=== PATIENT | male | born 1970 | race American Indian/Alaskan Native ===

== ENCOUNTER 2016-08-23 18:42 | Emergency (ER) | payer MEDICAID, OTHER ==
[2016-08-23 19:10] VITALS: BP 117/68
[2016-08-23] MEDS ORDERED: Lidocaine 1% 30 ML SDV INJECT ONE (19:22)
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
== END 2016-08-23 20:27 | disposition home or self-care (01) ==
LOC: DL.ED 18:42
DX: S01.81XA Laceration without foreign body of other part of head, initial encounter (principal); I10 Essential (primary) hypertension; E78.00 Pure hypercholesterolemia, unspecified; Z79.82 Long term (current) use of aspirin; Z79.899 Other long term (current) drug therapy; Y04.0XXA Assault by unarmed brawl or fight, initial encounter
CPT/HCPCS: 12013; 70450; 99284

== ENCOUNTER 2018-10-14 20:23 | Emergency (ER) | payer MEDICAID, OTHER ==
[2018-10-14] MEDS ORDERED: Colchicine 0.6 MG Tab PO ONE ×2 (20:24→21:44)
[2018-10-14 20:31] VITALS: BP 144/60
--- NOTE | 2018-10-14 20:56 | EDM.PDOC ---
ED HPI GENERAL MEDICAL PROBLEM - General Chief Complaint: Lower Extremity Injury/Pain Stated Complaint: LEFT FOOT PAIN Time Seen by Provider: 10/14/18 20:45 Source of Information: Reports: Patient History Limitations: Reports: No Limitations - History of Present Illness INITIAL COMMENTS - FREE TEXT/NARRATIVE: This 48 yo male patient reports to the ED with left foot pain. The patient reports his symptoms have been getting worse over the past 3 days. The patient reports he has been seen by the stock parts inspector in the [facility] for gout 2 times in the past month. The patient took his last pills on Wednesday. The patient does not know what the medications were, but he had green pills and white pills. The patient also reports he normally drinks blackberry concha on a daily basis. The patient reports that he may have rolled his ankle as well. Duration: Day(s):, Constant Location: Reports: Lower Extremity, Left Quality: Reports: Ache, Dull Severity: Moderate Improves with: Reports: None Worsens with: Reports: None Context: Reports: Other Associated Symptoms: Reports: No Other Symptoms Left Foot Pain Score (Numeric/FACES): 10 - Related Data Allergies Allergy/AdvReac Type Severity Reaction Status Date / Time No Known Allergies Allergy Verified 10/14/18 20:37 Home Meds: Home Meds Aspirin [Halfprin] 81 mg PO DAILY 08/08/13 [History] Atenolol [Tenormin] 25 mg PO DAILY 08/08/13 [History] Cholecalciferol (Vitamin D3) [Vitamin D3] 1 cap PO DAILY 08/08/13 [History] Ibuprofen [Motrin] 200 mg PO Q8HR PRN 08/08/13 [History] Lisinopril 60 mg PO DAILY 08/08/13 [History] Multivitamin [Multi-Vitamin Daily] 1 each PO DAILY 08/08/13 [History] Ranitidine [Zantac] 150 mg PO DAILY 08/08/13 [History] Venlafaxine [Effexor XR 24 Hr] 37.5 mg PO DAILY 08/08/13 [History] atorvaSTATin Calcium [Atorvastatin Calcium] 20 mg PO DAILY 08/08/13 [History] [place]-3 Fatty Acids/Fish Oil [Fish Oil 1,000 mg Softgel] 1 each PO DAILY [History] Past Medical History - Past Health History Medical/Surgical History: Denies Medical/Surgical History HEENT History: Reports: None Cardiovascular History: Reports: High Cholesterol, Hypertension Respiratory History: Reports: None Gastrointestinal History: Reports: None Genitourinary History: Reports: None Musculoskeletal History: Reports: Gout Neurological History: Reports: None Psychiatric History: Reports: None Endocrine/Metabolic History: Reports: Other (See Below) Other Endocrine/Metabolic History: pre diabetic Hematologic History: Reports: None Immunologic History: Reports: None Oncologic (Cancer) History: Reports: None Dermatologic History: Reports: None Social & Family History - Caffeine Use Caffeine Use: Reports: Coffee, Soda - Alcohol Use Days Per Week of Alcohol Use: 3 Number of Drinks Per Day: 12 Total Drinks Per Week: 36 - Recreational Drug Use Recreational Drug Use: No - Living Situation & Occupation Living situation: Reports: , with Spouse, with Family Occupation: Employed Review of Systems - Review of Systems Review Of Systems: ROS reveals no pertinent complaints other than HPI. ED EXAM, GENERAL - Physical Exam Exam: See Below Exam Limited By: No Limitations General Appearance: Alert, WD/WN, Mild Distress Eye Exam: Bilateral Eye: EOMI, Normal Inspection, PERRL Ears: Normal External Exam, Normal Canal, Hearing Grossly Normal, Normal TMs Nose: Normal Inspection, Normal Mucosa, No Blood Throat/Mouth: Normal Inspection, Normal Lips, Normal Teeth, Normal Gums, Normal Oropharynx, Normal Voice, No Airway Compromise Head: Atraumatic, Normocephalic Neck: Normal Inspection, Supple, Non-Tender, Full Range of Motion Respiratory/Chest: No Respiratory Distress, Lungs Clear, Normal Breath Sounds, No Accessory Muscle Use, Chest Non-Tender Cardiovascular: Normal Peripheral Pulses, Regular Rate, Rhythm, No Edema, No Gallop, No JVD, No Murmur, No Rub GI/Abdominal: Normal Bowel Sounds, Soft, Non-Tender, No Organomegaly, No Distention, No Abnormal Bruit, No Mass (Male) Exam: Deferred Rectal (Males) Exam: Deferred Back Exam: Normal Inspection, Full Range of Motion, NT Extremities: Leg Pain (left foot and ankle pain) Neurological: Alert, Oriented, CN II-XII Intact, Normal Cognition, Normal Gait, Normal Reflexes, No Motor/Sensory Deficits Psychiatric: Normal Affect, Normal Mood Skin Exam: Warm, Dry, Intact, Normal Color, No Rash Lymphatic: No Adenopathy Course - Vital Signs Last Recorded V/S: Last Vital Signs Temp 35.4 C 10/14/18 20:26 Pulse 81 10/14/18 20:26 Resp 20 10/14/18 20:26 BP 144/60 H 10/14/18 20:26 Pulse Ox 98 10/14/18 20:26 - Orders/Labs/Meds Labs: Laboratory Tests 10/14/18 10/14/18 Range/Units 20:45 20:45 WBC 11.5 H (5.0-10.0) 10^3/uL RBC 4.36 L (4.6-6.2) 10^6/uL Hgb 12.9 L (14.0-18.0) g/dL Hct 39.3 L (40.0-54.0) % MCV 90.1 D (80-100) fL MCH 29.6 (27.0-34.0) pg MCHC 32.8 L (33.0-35.0) g/dL Plt Count 227 (150-450) 10^3/uL Neut % (Auto) 69.5 (42.2-75.2) % Lymph % (Auto) 18.3 L (20.5-50.1) % [place] % (Auto) 9.7 H (2-8) % Eos % (Auto) 2.2 (1.0-3.0) % Baso % (Auto) 0.3 (0.0-1.0) % Sodium 138 (135-145) mmol/L Potassium 3.8 (3.6-5.0) mmol/L Chloride 103 (101-111) mmol/L Carbon Dioxide 23.0 (21.0-31.0) mmol/L Anion Gap 15.8 BUN 26 H (7-18) mg/dL Creatinine 1.5 H (0.6-1.3) mg/dL Est Cr Clr Drug Dosing 65.54 mL/min Estimated GFR (MDRD) 50 BUN/Creatinine Ratio 17.33 Glucose 98 (74-105) mg/dL Uric Acid 7.9 H (2.6-7.2) mg/dL Calcium 8.7 (8.4-10.2) mg/dl Total Bilirubin 0.8 (0.2-1.0) mg/dL AST 35 (10-42) IU/L ALT 33 (10-60) IU/L Alkaline Phosphatase 127 H (42-121) IU/L Total Protein 8.2 (6.7-8.2) g/dl Albumin 4.0 (3.2-5.5) g/dl Globulin 4.2 Albumin/Globulin Ratio 0.95 Ethyl Alcohol < 5 mg/dL Meds: Medications Discontinued Medications Generic Name Dose Route Start Last Admin Trade Name Shakira PRN Reason Stop Dose Admin Colchicine 1.2 mg 10/14/18 21:44 Colcrys PO 10/14/18 21:45 ONETIME ONE Departure - Departure Time of Disposition: 21:46 Disposition: Home, Self-Care 01 Condition: Fair Clinical Impression: Acute gout Qualifiers: Gout site: ankle Gout etiology: unspecified cause Laterality: left Qualified Code(s): M10.9 - Gout, unspecified - Discharge Information *PRESCRIPTION DRUG MONITORING PROGRAM REVIEWED*: Not Applicable *COPY OF PRESCRIPTION DRUG MONITORING REPORT IN PATIENT DENISE: Not Applicable Instructions: Low-Purine Eating Plan, Gout, [id number] Forms: ED Department Discharge Care Plan Goals: The patient was advised of the examination, x-ray and lab results during the visit. The patient was given an oral dose of Colchicine while in the ED and sent home with a dose to take at 11 pm tonight. The patient was encouraged to increase his oral fluid intake. The patient was discharged with instructions for a low purine diet. If the patient has any additional symptoms or concerns, the patient should either return to the emergency department or visit his primary care facility.
[2018-10-14 21:21] LABS: ANION GAP 15.8; CHLORIDE,CL 103 mmol/L (101-111); SODIUM,NA 138 mmol/L (135-145)
[2018-10-14] MEDS ORDERED: Colchicine 0.6 MG Tab ONE (21:48)
== END 2018-10-14 21:51 | disposition home or self-care (01) ==
LOC: DL.ED 20:23
DX: M10.9 Gout, unspecified (principal); E78.00 Pure hypercholesterolemia, unspecified; I10 Essential (primary) hypertension; Z79.899 Other long term (current) drug therapy; Z79.82 Long term (current) use of aspirin
CPT/HCPCS: 36415; 73610; 80053; 84550; 85025; 99283; A9270; G0480

== ENCOUNTER 2019-02-22 21:12 | Emergency (ER) | payer MEDICAID ==
[2019-02-22 22:14] VITALS: BP 128/41; PULSE 73
--- NOTE | 2019-02-22 22:42 | EDM.PDOC ---
<Marlyn Coronado - Last Filed: 02/22/19 22:37> ED HPI GENERAL MEDICAL PROBLEM - General Chief Complaint: Lower Extremity Injury/Pain Stated Complaint: SWELLING IN L FOOT Time Seen by Provider: 02/22/19 22:00 Source of Information: Reports: Patient, Family - History of Present Illness INITIAL COMMENTS - FREE TEXT/NARRATIVE: Patient is a 48 year old male with PMH of gout and peripheral neuropathy who presents to the ED with his son for left ankle pain. 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 His son states that as the day went on he appeared to be limping, so he came in to the ED. Pain is worst upon standing from a seated position and also on walking. Denies fever or any other complaints. He had a similar episode in October when he was diagnosed with gout and given dietary guidelines along with Colchicine in the ED. His Uric Acid at that tie was 7.9. Prior to October he was taking Allopurinol and Indomethacin, but ran out of those which triggered the visit to the ED in October. He upheld the dietary guidelines for 3 weeks only. He denies ETOH consumption on a daily basis. He is not taking any medications for gout at this time. Onset: Today Location: Reports: Lower Extremity, Left Improves with: Reports: Immobilization, Rest Worsens with: Reports: Movement Left Foot Pain Score (Numeric/FACES): 6 - Related Data Allergies Allergy/AdvReac Type Severity Reaction Status Date / Time No Known Allergies Allergy Verified 02/22/19 22:02 Home Meds: Home Meds Aspirin [Halfprin] 81 mg PO DAILY 08/08/13 [History] Atenolol [Tenormin] 25 mg PO DAILY 08/08/13 [History] Cholecalciferol (Vitamin D3) [Vitamin D3] 1 cap PO DAILY 08/08/13 [History] Ibuprofen [Motrin] 200 mg PO Q8HR PRN 08/08/13 [History] Lisinopril 60 mg PO DAILY 08/08/13 [History] Multivitamin [Multi-Vitamin Daily] 1 each PO DAILY 08/08/13 [History] Ranitidine [Zantac] 150 mg PO DAILY 08/08/13 [History] Venlafaxine [Effexor XR 24 Hr] 37.5 mg PO DAILY 08/08/13 [History] atorvaSTATin Calcium [Atorvastatin Calcium] 20 mg PO DAILY 08/08/13 [History] [place]-3 Fatty Acids/Fish Oil [Fish Oil 1,000 mg Softgel] 1 each PO DAILY [History] Past Medical History - Past Health History Medical/Surgical History: Denies Medical/Surgical History HEENT History: Reports: None Cardiovascular History: Reports: High Cholesterol, Hypertension Respiratory History: Reports: None Gastrointestinal History: Reports: None Genitourinary History: Reports: None Musculoskeletal History: Reports: Gout Neurological History: Reports: None Psychiatric History: Reports: None Endocrine/Metabolic History: Reports: Other (See Below) Other Endocrine/Metabolic History: pre diabetic Hematologic History: Reports: None Immunologic History: Reports: None Oncologic (Cancer) History: Reports: None Dermatologic History: Reports: None Social & Family History - Family History Family Medical History: Noncontributory - Tobacco Use Smoking Status *Q: Never Smoker Second Hand Smoke Exposure: No - Caffeine Use Caffeine Use: Reports: Soda - Alcohol Use Date of Last Drink: 02/21/19 - Recreational Drug Use Recreational Drug Use: No - Living Situation & Occupation Living situation: Reports: , with Spouse, with Family Occupation: Employed ED EXAM, GENERAL - Physical Exam Exam Limited By: No Limitations General Appearance: Alert, No Apparent Distress Respiratory/Chest: No Respiratory Distress, Lungs Clear, Normal Breath Sounds, No Accessory Muscle Use, Chest Non-Tender Cardiovascular: Regular Rate, Rhythm Extremities: Other (Left ankle is swollen and ROM is decreased due to pain on internal and external rotations, left foot is warm to touch in comparison to the right, severe tenderness over the 1st metatarsal joint with firm palpation, trace pitting edema of left foot and ankle, weak but palpable pulses ) Neurological: Alert, Normal Cognition Course - Vital Signs Last Recorded V/S: Last Vital Signs Temp 98.2 F 02/22/19 22:00 Pulse 73 02/22/19 22:00 Resp 19 02/22/19 22:00 BP 128/41 L 02/22/19 22:00 Pulse Ox 99 02/22/19 22:00 - Orders/Labs/Meds Labs: Laboratory Tests 02/22/19 02/22/19 02/22/19 Range/Units 22:43 22:43 22:43 WBC 13.4 H (5.0-10.0) 10^3/uL RBC 4.58 L (4.6-6.2) 10^6/uL Hgb 13.6 L (14.0-18.0) g/dL Hct 41.2 (40.0-54.0) % MCV 90.0 (80-100) fL MCH 29.7 (27.0-34.0) pg MCHC 33.0 (33.0-35.0) g/dL Plt Count 243 (150-450) 10^3/uL Neut % (Auto) 69.4 (42.2-75.2) % Lymph % (Auto) 17.1 L (20.5-50.1) % [place] % (Auto) 10.0 H (2-8) % Eos % (Auto) 3.1 H (1.0-3.0) % Baso % (Auto) 0.4 (0.0-1.0) % Sodium 137 (135-145) mmol/L Potassium 3.8 (3.6-5.0) mmol/L Chloride 100 L (101-111) mmol/L Carbon Dioxide 26.0 (21.0-31.0) mmol/L Anion Gap 14.8 BUN 27 H (7-18) mg/dL Creatinine 1.1 (0.6-1.3) mg/dL Est Cr Clr Drug Dosing 89.37 mL/min Estimated GFR (MDRD) > 60 Glucose 106 H (74-105) mg/dL Uric Acid 11.4 H (2.6-7.2) mg/dL Calcium 9.2 (8.4-10.2) mg/dl C-Reactive Protein 6.1 H (0.0-1.3) mg/dL Meds: Medications Discontinued Medications Generic Name Dose Route Start Last Admin Trade Name Freq PRN Reason Stop Dose Admin Colchicine 1.2 mg 02/22/19 23:16 02/22/19 23:36 Colcrys PO 02/22/19 23:17 1.2 mg ONETIME ONE Administration Departure - Departure Disposition: Home, Self-Care 01 Clinical Impression: Gout attack Qualifiers: Gout site: ankle Gout etiology: unspecified cause Laterality: left Qualified Code(s): M10.9 - Gout, unspecified - Discharge Information Instructions: Low-Purine Eating Plan, Gout, [id number] Forms: ED Department Discharge Additional Instructions: Indomethacin 25mg 2 3 times daily for 24 hours then one three timed daily increase fluids light activity advance as tolerated take medications with food limit processed foods follow up in clinic, - Assessment/Plan Admission H&P: Please use this note as an admission H&P Assessment:: A&P: Left foot pain likely secondary to gout - Follow up on CBC, BMP, uric acid, CRP - No indication for x-ray as there was no injury - Consider colchicine in ED, and discharge with Allopurinol and Indoethacin - Re-emphasize the importance of a low purine diet, avoiding ETOH, and weight reduction <Shawna Guerra - Last Filed: 02/23/19 07:18> ED HPI GENERAL MEDICAL PROBLEM - General History Limitations: Reports: No Limitations Review of Systems - Review of Systems Review Of Systems: ROS reveals no pertinent complaints other than HPI. ED EXAM, GENERAL - Physical Exam Exam: See Below Ears: Hearing Grossly Normal Throat/Mouth: Normal Voice Head: Atraumatic, Normocephalic Neck: Full Range of Motion Skin Exam: Warm, Dry, Intact. No: Normal Color (1st metatarsal head, warm, ) Departure - Departure Time of Disposition: 23:23 Condition: Good - Discharge Information *PRESCRIPTION DRUG MONITORING PROGRAM REVIEWED*: Not Applicable *COPY OF PRESCRIPTION DRUG MONITORING REPORT IN PATIENT DENISE: Not Applicable
[2019-02-22 23:09] LABS: ANION GAP 14.8; CHLORIDE,CL 100 mmol/L (101-111); SODIUM,NA 137 mmol/L (135-145)
[2019-02-22] MEDS: Colchicine 0.6 MG Tab PO ONE (23:36)
== END 2019-02-22 23:37 | disposition home or self-care (01) ==
LOC: DL.ED 21:12
DX: M10.9 Gout, unspecified (principal); I10 Essential (primary) hypertension; Z79.82 Long term (current) use of aspirin; Z79.899 Other long term (current) drug therapy
CPT/HCPCS: 36415; 80048; 84550; 85025; 86140; 99283; A9270-GY

== ENCOUNTER 2019-09-03 19:06 | Emergency (ER) | payer MEDICAID ==
[2019-09-03 19:12] VITALS: BP 126/68; PULSE 63
[2019-09-03] MEDS ORDERED: GI Cocktail Oral Solution 30 ML PO ONE (19:27)
--- NOTE | 2019-09-03 19:33 | EDM.PDOC ---
ED HPI GENERAL MEDICAL PROBLEM - General Chief Complaint: Abdominal Pain Stated Complaint: AMBULANCE Time Seen by Provider: 09/03/19 19:30 Source of Information: Reports: Patient History Limitations: Reports: No Limitations - History of Present Illness INITIAL COMMENTS - FREE TEXT/NARRATIVE: 3 days h/o sharp epiG pain with on-off intensity, nauseous with decrease appetite, ate lunch of pizza without vomiting. pain not going away. still has GB. Middle Epigastric Pain Score (Numeric/FACES): 6 - Related Data Allergies Allergy/AdvReac Type Severity Reaction Status Date / Time No Known Allergies Allergy Verified 09/03/19 19:13 Home Meds: Home Meds Aspirin [Halfprin] 81 mg PO DAILY 08/08/13 [History] Atenolol [Tenormin] 100 mg PO DAILY 08/08/13 [History] Ibuprofen [Motrin] 200 mg PO Q8HR PRN 08/08/13 [History] Lisinopril 40 mg PO DAILY 08/08/13 [History] Multivitamin [Multi-Vitamin Daily] 1 each PO DAILY 08/08/13 [History] Venlafaxine [Effexor XR 24 Hr] 150 mg PO DAILY 08/08/13 [History] atorvaSTATin Calcium [Atorvastatin Calcium] 20 mg PO DAILY 08/08/13 [History] [place]-3 Fatty Acids/Fish Oil [Fish Oil 1,000 mg Softgel] 1 each PO DAILY [History] Omeprazole 20 mg PO DAILY 09/03/19 [History] hydroCHLOROthiazide [Hydrochlorothiazide] 25 mg PO DAILY 09/03/19 [History] Past Medical History - Past Health History Medical/Surgical History: Denies Medical/Surgical History HEENT History: Reports: None Cardiovascular History: Reports: High Cholesterol, Hypertension Respiratory History: Reports: None Gastrointestinal History: Reports: None Genitourinary History: Reports: None Musculoskeletal History: Reports: Gout Neurological History: Reports: None Psychiatric History: Reports: None Endocrine/Metabolic History: Reports: Other (See Below) Other Endocrine/Metabolic History: pre diabetic Hematologic History: Reports: None Immunologic History: Reports: None Oncologic (Cancer) History: Reports: None Dermatologic History: Reports: None Social & Family History - Family History Family Medical History: Noncontributory - Tobacco Use Smoking Status *Q: Never Smoker Second Hand Smoke Exposure: No - Caffeine Use Caffeine Use: Reports: Soda - Alcohol Use Date of Last Drink: 09/01/19 - Recreational Drug Use Recreational Drug Use: No - Living Situation & Occupation Living situation: Reports: , with Spouse, with Family Occupation: Employed ED ROS GENERAL - Review of Systems Review Of Systems: Comprehensive ROS is negative, except as noted in HPI. ED EXAM, GI/ABD - Physical Exam Exam: See Below Exam Limited By: No Limitations General Appearance: Alert, WD/WN, Mild Distress, Other (discomfort). No: Active Emesis Ears: Hearing Grossly Normal Throat/Mouth: Normal Voice, No Airway Compromise Head: Atraumatic Neck: Non-Tender, Full Range of Motion Respiratory/Chest: No Respiratory Distress Cardiovascular: Regular Rate, Rhythm GI/Abdominal Exam: Tender, Other (epiG region, splinting). No: Distended, Guarding, Rigid, Rebound Neurological: Alert, Oriented, Normal Cognition, Normal Gait, No Motor/Sensory Deficits Psychiatric: Flat Affect Skin Exam: Warm, Dry, Normal Color Lymphatic: No Adenopathy Course - Vital Signs Last Recorded V/S: Last Vital Signs Temp 36.8 C 09/03/19 19:11 Pulse 63 09/03/19 19:11 Resp 16 09/03/19 19:11 BP 126/68 09/03/19 19:11 Pulse Ox 95 09/03/19 19:11 - Orders/Labs/Meds Orders: Active Orders 24 hr Category Date Time Status Abdomen Pelvis w Cont [CT] Urgent Exams 09/03/19 19:50 Taken Labs: Laboratory Tests 09/03/19 09/03/19 Range/Units 19:24 19:24 WBC 12.4 H (5.0-10.0) 10^3/uL RBC 4.76 (4.6-6.2) 10^6/uL Hgb 13.9 L (14.0-18.0) g/dL Hct 41.5 (40.0-54.0) % MCV 87.2 (80-100) fL MCH 29.2 (27.0-34.0) pg MCHC 33.5 (33.0-35.0) g/dL Plt Count 288 (150-450) 10^3/uL Neut % (Auto) 70.4 (42.2-75.2) % Lymph % (Auto) 16.8 L (20.5-50.1) % [place] % (Auto) 8.4 H (2-8) % Eos % (Auto) 3.9 H (1.0-3.0) % Baso % (Auto) 0.5 (0.0-1.0) % Sodium 137 (136-145) mmol/L Potassium 4.1 (3.5-5.1) mmol/L Chloride 98 (98-107) mmol/L Carbon Dioxide 25 (21-32) mmol/L Anion Gap 18.1 H (7-13) mEq/L BUN 20 H (7-18) mg/dL Creatinine 1.18 (0.70-1.30) mg/dL Est Cr Clr Drug Dosing 79.91 mL/min Estimated GFR (MDRD) > 60 BUN/Creatinine Ratio 16.9 (No establ ref range) Glucose 121 H (74-99) mg/dL Calcium 8.5 (8.5-10.1) mg/dL Total Bilirubin 0.4 (0.2-1.0) mg/dL AST 32 (15-37) U/L ALT 57 (16-63) U/L Alkaline Phosphatase 158 H (46-116) U/L Troponin I < 0.017 (0.000-0.056) ng/mL Total Protein 8.9 H (6.4-8.2) g/dL Albumin 3.8 (3.4-5.0) g/dL Globulin 5.1 Albumin/Globulin Ratio 0.7 Amylase 61 (25-115) U/L Lipase 127 (73-393) U/L Meds: Medications Discontinued Medications Generic Name Dose Route Start Last Admin Trade Name Luisq PRN Reason Stop Dose Admin Al Hydroxide/Mg Hydroxide 30 ml 09/03/19 19:27 09/03/19 19:36 Gi Cocktail PO 09/03/19 19:28 30 ml ONETIME ONE Administration Iopamidol 100 ml 09/03/19 19:49 09/03/19 20:16 Isovue-300 (61%) IVPUSH 09/03/19 19:50 100 ml ONETIME ONE Administration - Re-Assessments/Exams Free Text/Narrative Re-Assessment/Exam: 09/03/19 21:28 results discussed with pt & spouse. Departure - Departure Time of Disposition: 21:28 Disposition: Home, Self-Care 01 Condition: Good Clinical Impression: Abdominal pain Qualifiers: Abdominal location: right upper quadrant Qualified Code(s): R10.11 - Right upper quadrant pain - Discharge Information Forms: ED Department Discharge Additional Instructions: 1) see clinic tomorrow for MRI SCAN OF ABDOMEN FOR LIVER MASS on CAT SCAN. Sepsis Event Note - Evaluation Sepsis Screening Result: No Definite Risk - Focused Exam Vital Signs: Vital Signs Temp Pulse Resp BP Pulse Ox 09/03/19 19:11 36.8 C 63 16 126/68 95 Date Exam was Performed: 09/03/19 Time Exam was Performed: 21:27 - My Orders Last 24 Hours: My Active Orders 09/03/19 19:50 Abdomen Pelvis w Cont [CT] Urgent - Assessment/Plan Last 24 Hours: My Active Orders 09/03/19 19:50 Abdomen Pelvis w Cont [CT] Urgent
[2019-09-03] MEDS ORDERED: Iopamidol 612 MG/ML 100 ML Bottle IVPUSH ONE (19:49)
[2019-09-03 20:00] LABS: ANION GAP 18.1 mEq/L (7-13); CHLORIDE,CL 98 mmol/L (98-107); SODIUM,NA 137 mmol/L (136-145)
[2019-09-03] MEDS ORDERED: Acetaminophen/HYDROcodone 325-10 MG Tab PO ONE (21:27)
== END 2019-09-03 21:38 | disposition home or self-care (01) ==
LOC: DL.ED 19:06
DX: R10.11 Right upper quadrant pain (principal); R10.13 Epigastric pain; I10 Essential (primary) hypertension; E78.00 Pure hypercholesterolemia, unspecified; M10.9 Gout, unspecified; Z79.82 Long term (current) use of aspirin; Z79.899 Other long term (current) drug therapy
CPT/HCPCS: 36415; 74177; 80053; 82150; 83690; 84484; 85025; 99284; A9270; Q9967

== ENCOUNTER 2021-07-14 23:07 | Emergency (ER) | payer MEDICAID, OTHER ==
[2021-07-14 23:26] VITALS: BP 156/78; PULSE 67
[2021-07-15 00:12] LABS: ANION GAP 20.2 mEq/L (7-13); CHLORIDE,CL 103 mmol/L (98-107); SODIUM,NA 140 mmol/L (136-145)
[2021-07-15] MEDS ORDERED: Magnesium Sulfate/Water 2 GM in Premix Bag 1 BAG IV ONE (00:14)
[2021-07-15 00:17] LABS: CORONAVIRUS COVID-19 NAA NEGATIVE (NEGATIVE)
[2021-07-15 01:18] LABS: AMPHETAMINES,URINE NEGATIVE (NEGATIVE); BARBITURATES,URINE NEGATIVE (NEGATIVE); BENZODIAZEPINE,URINE NEGATIVE (NEGATIVE); MDMA (ECSTASY), URINE NEGATIVE (NEGATIVE); METHADONE,URINE NEGATIVE (NEGATIVE); METHAMPHETAMINES,URINE NEGATIVE (NEGATIVE); OPIATES,URINE NEGATIVE (NEGATIVE); OXYCODONE,URINE NEGATIVE (NEGATIVE); PHENCYCLIDINE,URINE NEGATIVE (NEGATIVE); TCA,URINE NEGATIVE (NEGATIVE)
== END 2021-07-15 01:21 | disposition home or self-care (01) ==
LOC: DL.ED 23:07
DX: K44.9 Diaphragmatic hernia without obstruction or gangrene (principal); R74.8 Abnormal levels of other serum enzymes; E83.42 Hypomagnesemia; E78.00 Pure hypercholesterolemia, unspecified; I10 Essential (primary) hypertension; M10.9 Gout, unspecified; Z79.82 Long term (current) use of aspirin; Z79.899 Other long term (current) drug therapy; Z20.822 Contact with and (suspected) exposure to COVID-19
CPT/HCPCS: 0240U; 36415; 71045; 80053; 80305; 80307; 81001; 83605; 83735; 84484; 85025; 86140; 93005; 96365; 99285; J3475

== ENCOUNTER 2021-09-10 12:04 | Emergency (ER) | payer MEDICAID ==
[2021-09-10 12:18] VITALS: BP 187/84; PULSE 83
[2021-09-10 13:28] LABS: ANION GAP 14.5 mEq/L (7-13); CHLORIDE,CL 103 mmol/L (98-107); SODIUM,NA 142 mmol/L (136-145)
[2021-09-10 13:36] LABS: CORONAVIRUS COVID-19 NAA NEGATIVE (NEGATIVE)
[2021-09-10] MEDS ORDERED: Magnesium Sulfate/Water 2 GM in Premix Bag 1 BAG IV ONE (13:44)
== END 2021-09-10 16:06 | disposition home or self-care (01) ==
LOC: DL.ED 12:04
DX: R06.02 Shortness of breath (principal); R60.0 Localized edema; E78.00 Pure hypercholesterolemia, unspecified; I12.9 Hypertensive chronic kidney disease with stage 1 through stage 4 chronic kidney disease, or unspecified chronic kidney disease; N18.9 Chronic kidney disease, unspecified; Z79.82 Long term (current) use of aspirin; Z79.899 Other long term (current) drug therapy; Z20.822 Contact with and (suspected) exposure to COVID-19
CPT/HCPCS: 0240U; 36415; 71045; 80053; 83605; 83735; 83880; 84484; 85025; 93005; 93010; 96365; 96366; 99284; 99285; J3475

== ENCOUNTER 2023-04-03 14:48 | Inpatient (IN) | payer MEDICAID ==
[2023-04-03] MEDS ORDERED: Sodium Chloride 0.9% 10 ML Syringe FLUSH PRN (15:09)
[2023-04-03 15:29] LABS: BASOPHILS PERCENT AUTO 0.4 % (0.0-1.0); EOSINOPHILS PERCENT AUTO 0.2 % (1.0-3.0); HEMATOCRIT 37.5 % (40.0-54.0); HEMOGLOBIN 12.8 g/dL (14.0-18.0); LYMPHOCYTES PERCENT AUTO 4.4 % (20.5-50.1); MEAN CORPUSCULAR HEMOGLOBIN 32.8 pg (27.0-34.0); MEAN CORPUSCULAR HGB CONC 34.1 g/dL (33.0-35.0); MEAN CORPUSCULAR VOLUME 96.2 fL (80-100); PLATELET COUNT,PLT 120 10^3/uL (150-450)
[2023-04-03] MEDS ORDERED: Acetaminophen 500 MG Tab PO ONE (15:34)
[2023-04-03] MEDS ORDERED: fentaNYL 100 MCG/2 ML SDV IVPUSH ONE (15:34)
[2023-04-03] MEDS ORDERED: Ondansetron 4 MG/2 ML SDV IVPUSH ONE (15:35)
[2023-04-03 15:50] LABS: ALBUMIN 2.6 g/dL (3.4-5.0); BILIRUBIN TOTAL 2.6 mg/dL (0.2-1.0); BUN/CREATININE RATIO 7.5 (No establ ref range); C-REACTIVE PROTEIN 10.47 ng/dL (<=0.30); CALCIUM 7.6 mg/dL (8.5-10.1); CREATININE 1.07 mg/dL (0.70-1.30); EST CRCL DRUG DOSING (CG) 87.97 mL/min; PROTEIN TOTAL,TP 9.4 g/dL (6.4-8.2)
[2023-04-03 15:53] LABS: LACTIC ACID 1.4 mmol/L (0.4-2.0)
[2023-04-03 15:58] LABS: A/G RATIO 0.38
[2023-04-03] MEDS ORDERED: cefTRIAXone 2 GM Vial IVPUSH ONE (16:14)
[2023-04-03] MEDS ORDERED: Ampicillin 2 GM Vial IVPUSH ONE (16:15)
[2023-04-03] MEDS ORDERED: Sodium Chloride 0.9% 1,000 ML IV ONE ×2 (16:16→17:51)
[2023-04-03 16:46] LABS: GLUCOSE,CSF 62 mg/dL (40-70); PROTEIN,CSF 37 mg/dL (15-45)
[2023-04-03 16:53] LABS: INR 1.3 (0.9-1.2); PROTHROMBIN TIME 13.3 SEC (9.0-12.0); PTT,PARTIAL THROMBOPLSTIN TIME 30.6 SEC (22.0-34.0)
[2023-04-03 17:23] LABS: TUBE NUMBER,CSF 4
[2023-04-03 17:24] LABS: APPEARANCE CSF CLEAR; COLOR,CSF COLORLESS; RBC,CSF 3.3; SEG NEUTROPHILS,CSF 1; SUPERNATANT APPEAR,CSF NO XANTHOCHROMIA; TUBE VOLUME,CSF 2; WBC,CSF 1
[2023-04-03 17:25] LABS: LYMPHOCYTES,CSF 0; MONOCYTES,CSF 0
[2023-04-03 17:54] LABS: APPEARANCE,URINE SLIGHTLY CLOUDY (CLEAR); BILIRUBIN,URINE SMALL (NEGATIVE); COLOR,URINE DARK YELLOW (YELLOW); GLUCOSE,URINE NEGATIVE (NEGATIVE); KETONES,URINE NEGATIVE (NEGATIVE); LEUKOCYTE ESTERASE,URINE NEGATIVE (NEGATIVE); NITRITE,URINE NEGATIVE (NEGATIVE); OCCULT BLOOD,URINE NEGATIVE (NEGATIVE); PROTEIN,URINE 100 (NEGATIVE); UROBILINOGEN,URINE >=8.0 mg/dL (0.2-1.0)
[2023-04-03 17:56] LABS: EPITHELIAL CELLS,URINE FEW /HPF (NOT SEEN); RBC,URINE 0-5 /HPF (0-5)
[2023-04-03 17:57] LABS: BACTERIA,URINE FEW /HPF (0-FEW/HPF); MUCUS,URINE FEW /LPF (NOT SEEN)
[2023-04-03] MEDS ORDERED: Naloxone 2 MG/2 ML Syringe IVPUSH PRN (19:18)
[2023-04-03] MEDS ORDERED: HYDROmorphone 0.5 MG/0.5 ML Syringe IVPUSH PRN (19:18)
[2023-04-03] MEDS ORDERED: Ondansetron 4 MG/2 ML SDV IVPUSH PRN (19:18)
[2023-04-03] MEDS ORDERED: Magnesium Hydroxide 400 MG/5 ML Susp 30 ML Cup PO PRN (19:18)
[2023-04-03] MEDS ORDERED: Polyethylene Glycol 3350 Powder 17 GM Packet PO PRN (19:18)
[2023-04-03] MEDS ORDERED: Sennosides/Docusate Sodium 50-8.6 MG Tab PO PRN (19:18)
[2023-04-03] MEDS ORDERED: Albuterol/Ipratropium 3.0-0.5 MG/3 ML Neb Soln NEB PRN (19:18)
[2023-04-03] MEDS ORDERED: hydrALAZINE 20 MG/ML SDV IVPUSH PRN (19:22)
[2023-04-03] MEDS ORDERED: Metoprolol Tartrate 5 MG/5 ML SDV IVPUSH PRN (19:22)
[2023-04-03] MEDS ORDERED: LORazepam 2 MG/ML SDV IV PRN (19:24)
[2023-04-03] MEDS ORDERED: Thiamine 100 MG in Sodium Chloride 0.9% 50 ML IV ONE (19:24)
[2023-04-03] MEDS ORDERED: MVI, Adult with Vitamin K 10 ML, Folic Acid 1 MG, Thiamine 100 MG in Lactated Ringers 1... IV ONE ×4 (19:24)
[2023-04-03] MEDS ORDERED: cloNIDine 0.1 MG Tab PO PRN (19:24)
[2023-04-03] MEDS ORDERED: LORazepam 2 MG/ML SDV IVPUSH PRN (19:25)
[2023-04-03] MEDS ORDERED: Flumazenil 0.1 MG/ML 5 ML MDV IVPUSH PRN ×2 (19:25→20:54)
[2023-04-03 19:31] LABS: AMPHETAMINES,URINE NEGATIVE (NEGATIVE); BARBITURATES,URINE NEGATIVE (NEGATIVE); BENZODIAZEPINE,URINE NEGATIVE (NEGATIVE); MDMA (ECSTASY), URINE NEGATIVE (NEGATIVE); METHADONE,URINE NEGATIVE (NEGATIVE); METHAMPHETAMINES,URINE NEGATIVE (NEGATIVE); OPIATES,URINE NEGATIVE (NEGATIVE); OXYCODONE,URINE NEGATIVE (NEGATIVE); PHENCYCLIDINE,URINE NEGATIVE (NEGATIVE); TCA,URINE NEGATIVE (NEGATIVE)
[2023-04-03] MEDS ORDERED: Ketorolac 30 MG/ML SDV IVPUSH ONE (20:39)
[2023-04-03] MEDS ORDERED: Famotidine 20 MG/2 ML SDV IVPUSH ONE (20:42)
[2023-04-03] MEDS ORDERED: LORazepam 2 MG/ML SDV IVPUSH ONE (20:54)
[2023-04-03] MEDS ORDERED: Famotidine 20 MG Tab PO SCH (21:00)
[2023-04-03] MEDS: Cyclobenzaprine 10 MG Tab PO SCH (21:07)
[2023-04-03] MEDS: Gabapentin 300 MG Cap PO SCH (21:07)
[2023-04-03] MEDS: Melatonin 3 MG Tab PO SCH (21:07)
[2023-04-03] MEDS: Saccharomyces Boulardii (Probiotic) 250 MG Cap PO SCH (21:08)
[2023-04-03] MEDS: Ferrous Sulfate 325 MG Tab PO SCH (21:08)
[2023-04-03] MEDS: Ascorbic Acid 500 MG Tab PO SCH (21:08)
[2023-04-03] MEDS: Ampicillin 2 GM Vial IVPUSH SCH (21:10)
[2023-04-03] MEDS: Bacitracin/Neomycin/Polymyxin B Oint 28.4 GM Tube TOP SCH (21:11)
[2023-04-03] MEDS: Lisinopril 20 MG Tab PO SCH (21:13)
[2023-04-03] MEDS: Nicotine 21 MG/24 Hr Patch TRDERM SCH (21:34)
[2023-04-03] MEDS: Omeprazole 20 MG Cap.CR PO SCH (21:34)
[2023-04-04] MEDS: Ampicillin 2 GM Vial IVPUSH SCH ×3 (00:48→08:36)
[2023-04-04] MEDS: Omeprazole 20 MG Cap.CR PO SCH ×2 (05:10→15:14)
[2023-04-04] MEDS: Ibuprofen 600 MG Tab PO PRN ×2 (05:26→15:18)
[2023-04-04] MEDS ORDERED: Omeprazole 20 MG Cap.CR PO SCH (06:00)
[2023-04-04 06:24] LABS: HEMATOCRIT 35.1 % (40.0-54.0); HEMOGLOBIN 11.6 g/dL (14.0-18.0); MEAN CORPUSCULAR HEMOGLOBIN 32.3 pg (27.0-34.0); MEAN CORPUSCULAR VOLUME 97.8 fL (80-100); PLATELET COUNT,PLT 100 10^3/uL (150-450); RED BLOOD CELL COUNT 3.59 10^6/uL (4.6-6.2); WHITE BLOOD CELL COUNT,WBC 16.2 10^3/uL (5.0-10.0)
[2023-04-04 06:48] LABS: ALBUMIN 2.2 g/dL (3.4-5.0); ANION GAP 14.6 mEq/L (7-13); BILIRUBIN TOTAL 1.9 mg/dL (0.2-1.0); BUN/CREATININE RATIO 9.3 (No establ ref range); C-REACTIVE PROTEIN 16.31 ng/dL (<=0.30); CALCIUM 6.8 mg/dL (8.5-10.1); CREATININE 1.18 mg/dL (0.70-1.30); EST CRCL DRUG DOSING (CG) 79.77 mL/min; POTASSIUM,K 3.6 mmol/L (3.5-5.1); PROTEIN TOTAL,TP 8.3 g/dL (6.4-8.2)
[2023-04-04 06:58] LABS: A/G RATIO 0.36
[2023-04-04 06:59] LABS: MAGNESIUM 0.6 mg/dL (1.8-2.4)
[2023-04-04 07:02] LABS: BASOPHILS PERCENT AUTO 0.3 % (0.0-1.0); EOSINOPHILS PERCENT AUTO 0.2 % (1.0-3.0); LYMPHOCYTES PERCENT AUTO 6.1 % (20.5-50.1); MONOCYTES PERCENT AUTO 7.4 % (2-8)
[2023-04-04 07:06] LABS: BAND PERCENT MAN 9 %; EOSINOPHILS PERCENT MAN 1 % (1-3); LYMPHOCYTES PERCENT MAN 7 % (20-50); MONOCYTES PERCENT MAN 9 % (2-8); SEG NEUTROPHILS PERCENT MAN 74 % (42-75)
[2023-04-04 07:07] LABS: PLATELET COUNT ESTIMATE DECREASED
[2023-04-04] MEDS ORDERED: Magnesium Sulfate/Water 2 GM in Premix Bag 1 BAG IV ONE ×4 (07:23→21:00)
[2023-04-04] MEDS ORDERED: Diphtheria,Pertussis(Acell),Tetanus Vaccine 0.5 ML Syringe IM ONE (07:48)
[2023-04-04] MEDS ORDERED: Lisinopril 20 MG Tab PO SCH (09:00)
[2023-04-04] MEDS ORDERED: Atenolol 50 MG Tab PO SCH (09:00)
[2023-04-04] MEDS ORDERED: Venlafaxine 150 MG Cap.ER PO SCH (09:00)
[2023-04-04] MEDS ORDERED: cefTRIAXone 2 GM Vial IVPUSH SCH (09:00)
[2023-04-04] MEDS: Atenolol 50 MG Tab PO SCH (09:13)
[2023-04-04] MEDS: Venlafaxine 150 MG Cap.ER PO SCH (09:19)
[2023-04-04] MEDS: Cyclobenzaprine 10 MG Tab PO SCH ×2 (09:19→20:00)
[2023-04-04] MEDS: Lisinopril 20 MG Tab PO SCH ×2 (09:20→19:59)
[2023-04-04] MEDS: atorvaSTATin 20 MG Tab PO SCH (09:20)
[2023-04-04] MEDS: Saccharomyces Boulardii (Probiotic) 250 MG Cap PO SCH ×2 (09:20→20:00)
[2023-04-04] MEDS: Aspirin 81 MG Tab.EC PO SCH (09:20)
[2023-04-04] MEDS: Allopurinol 100 MG Tab PO SCH (09:21)
[2023-04-04] MEDS: Nicotine 21 MG/24 Hr Patch TRDERM SCH (09:22)
[2023-04-04] MEDS: Bacitracin/Neomycin/Polymyxin B Oint 28.4 GM Tube TOP SCH ×2 (09:23→23:12)
[2023-04-04] MEDS: LORazepam 0.5 MG Tab PO PRN ×2 (09:59→15:13)
[2023-04-04] MEDS: Piperacillin/Tazobactam 3.375 GM in Sodium Chloride 0.9% 100 ML IV SCH ×3 (12:56→23:08)
[2023-04-04 19:31] LABS: ALBUMIN 1.9 g/dL (3.4-5.0); ANION GAP 12.2 mEq/L (7-13); BILIRUBIN TOTAL 1.5 mg/dL (0.2-1.0); BUN/CREATININE RATIO 8.7 (No establ ref range); CALCIUM 6.5 mg/dL (8.5-10.1); CREATININE 1.26 mg/dL (0.70-1.30); EST CRCL DRUG DOSING (CG) 74.7 mL/min; MAGNESIUM 1.9 mg/dL (1.8-2.4); POTASSIUM,K 3.2 mmol/L (3.5-5.1); PROTEIN TOTAL,TP 7.2 g/dL (6.4-8.2)
[2023-04-04 19:33] LABS: A/G RATIO 0.36
[2023-04-04] MEDS ORDERED: Potassium Chloride 20 MEQ in Premix Bag 1 BAG IV ONE (19:35)
[2023-04-04] MEDS: Melatonin 3 MG Tab PO SCH (19:59)
[2023-04-04] MEDS: Gabapentin 300 MG Cap PO SCH (20:00)
[2023-04-04] MEDS: Ferrous Sulfate 325 MG Tab PO SCH (20:00)
[2023-04-04] MEDS: Ascorbic Acid 500 MG Tab PO SCH (20:01)
[2023-04-04] MEDS: Sodium Chloride 0.9% 1,000 ML IV SCH (20:06)
[2023-04-04] MEDS: Acetaminophen 325 MG Tab PO PRN (20:15)
[2023-04-04] MEDS: Multivitamin Tab PO SCH (20:20)
[2023-04-04] MEDS: Thiamine 100 MG Tab PO SCH (20:20)
[2023-04-04] MEDS: Folic Acid 1 MG Tab PO SCH (20:21)
[2023-04-05] MEDS: oxyCODONE 5 MG Tab PO PRN ×2 (02:03→17:51)
[2023-04-05] MEDS ORDERED: Potassium Chloride 20 MEQ in Premix Bag 1 BAG IV ONE (04:00)
[2023-04-05] MEDS: Omeprazole 20 MG Cap.CR PO SCH ×2 (05:18→15:51)
[2023-04-05] MEDS: Piperacillin/Tazobactam 3.375 GM in Sodium Chloride 0.9% 100 ML IV SCH ×3 (05:18→17:51)
[2023-04-05 06:14] LABS: BASOPHILS PERCENT AUTO 0.2 % (0.0-1.0); EOSINOPHILS PERCENT AUTO 0.9 % (1.0-3.0); HEMATOCRIT 32.9 % (40.0-54.0); HEMOGLOBIN 10.7 g/dL (14.0-18.0); LYMPHOCYTES PERCENT AUTO 8.5 % (20.5-50.1); MEAN CORPUSCULAR HEMOGLOBIN 31.9 pg (27.0-34.0); MEAN CORPUSCULAR HGB CONC 32.5 g/dL (33.0-35.0); MEAN CORPUSCULAR VOLUME 98.2 fL (80-100); MONOCYTES PERCENT AUTO 12.2 % (2-8); NEUTROPHILS PERCENT AUTO 78.2 % (42.2-75.2); PLATELET COUNT,PLT 107 10^3/uL (150-450); RED BLOOD CELL COUNT 3.35 10^6/uL (4.6-6.2)
[2023-04-05 06:32] LABS: ANION GAP 13.5 mEq/L (7-13); BILIRUBIN TOTAL 1.6 mg/dL (0.2-1.0); BUN/CREATININE RATIO 9.8 (No establ ref range); C-REACTIVE PROTEIN 22.37 ng/dL (<=0.30); CALCIUM 6.8 mg/dL (8.5-10.1); CREATININE 1.22 mg/dL (0.70-1.30); EST CRCL DRUG DOSING (CG) 77.15 mL/min; POTASSIUM,K 3.5 mmol/L (3.5-5.1); PROTEIN TOTAL,TP 7.8 g/dL (6.4-8.2)
[2023-04-05 06:34] LABS: WHITE BLOOD CELL COUNT,WBC 12.4 10^3/uL (5.0-10.0)
[2023-04-05 06:42] LABS: A/G RATIO 0.34
[2023-04-05] MEDS ORDERED: Potassium Chloride 10 MEQ Tab.ER PO SCH (08:00)
[2023-04-05] MEDS: Saccharomyces Boulardii (Probiotic) 250 MG Cap PO SCH ×2 (08:14→20:38)
[2023-04-05] MEDS: Thiamine 100 MG Tab PO SCH (08:15)
[2023-04-05] MEDS: Folic Acid 1 MG Tab PO SCH (08:15)
[2023-04-05] MEDS: Allopurinol 100 MG Tab PO SCH (08:15)
[2023-04-05] MEDS: Atenolol 50 MG Tab PO SCH (08:15)
[2023-04-05] MEDS: Cyclobenzaprine 10 MG Tab PO SCH ×2 (08:15→20:39)
[2023-04-05] MEDS: Aspirin 81 MG Tab.EC PO SCH (08:15)
[2023-04-05] MEDS: Multivitamin Tab PO SCH (08:16)
[2023-04-05] MEDS: Lisinopril 20 MG Tab PO SCH ×2 (08:17→20:40)
[2023-04-05] MEDS: atorvaSTATin 20 MG Tab PO SCH (08:17)
[2023-04-05] MEDS: Venlafaxine 150 MG Cap.ER PO SCH (08:18)
[2023-04-05] MEDS: Nicotine 21 MG/24 Hr Patch TRDERM SCH (08:19)
[2023-04-05] MEDS: Bacitracin/Neomycin/Polymyxin B Oint 28.4 GM Tube TOP SCH ×2 (08:25→20:43)
[2023-04-05] MEDS ORDERED: Calcium Gluconate 10% 1 GM/10 ML SDV IVPUSH ONE ×2 (08:59→16:00)
[2023-04-05] MEDS ORDERED: Calcium Gluconate 1 GM in Sodium Chloride 0.9% 100 ML IV ONE ×2 (09:15→16:00)
[2023-04-05] MEDS: Acetaminophen 325 MG Tab PO PRN ×2 (12:07→20:35)
[2023-04-05] MEDS ORDERED: Loperamide 2 MG Cap PO PRN (18:42)
[2023-04-05] MEDS: Ferrous Sulfate 325 MG Tab PO SCH (20:36)
[2023-04-05] MEDS: Ascorbic Acid 500 MG Tab PO SCH (20:36)
[2023-04-05] MEDS: Gabapentin 300 MG Cap PO SCH (20:37)
[2023-04-05] MEDS: Melatonin 3 MG Tab PO SCH (20:38)
[2023-04-05] MEDS ORDERED: Oxymetazoline 0.05% Nasal Spray 30 ML Bottle NAS PRN (20:42)
[2023-04-05] MEDS: Sodium Chloride 0.9% 1,000 ML IV SCH (22:59)
[2023-04-06] MEDS: Piperacillin/Tazobactam 3.375 GM in Sodium Chloride 0.9% 100 ML IV SCH ×4 (00:06→17:57)
[2023-04-06] MEDS: Acetaminophen 325 MG Tab PO PRN ×2 (03:44→21:27)
[2023-04-06] MEDS: Omeprazole 20 MG Cap.CR PO SCH ×2 (05:39→15:52)
[2023-04-06 06:24] LABS: BASOPHILS PERCENT AUTO 0.3 % (0.0-1.0); EOSINOPHILS PERCENT AUTO 0.8 % (1.0-3.0); HEMATOCRIT 30.7 % (40.0-54.0); LYMPHOCYTES PERCENT AUTO 9.7 % (20.5-50.1); MEAN CORPUSCULAR HEMOGLOBIN 31.7 pg (27.0-34.0); MEAN CORPUSCULAR HGB CONC 32.6 g/dL (33.0-35.0); MEAN CORPUSCULAR VOLUME 97.5 fL (80-100); MONOCYTES PERCENT AUTO 15.2 % (2-8); PLATELET COUNT,PLT 136 10^3/uL (150-450); RED BLOOD CELL COUNT 3.15 10^6/uL (4.6-6.2); WHITE BLOOD CELL COUNT,WBC 13.8 10^3/uL (5.0-10.0)
[2023-04-06 06:40] LABS: INR 1.2 (0.9-1.2); PTT,PARTIAL THROMBOPLSTIN TIME 31.9 SEC (22.0-34.0)
[2023-04-06 06:41] LABS: ALBUMIN 1.9 g/dL (3.4-5.0); ANION GAP 12.8 mEq/L (7-13); BILIRUBIN TOTAL 1.4 mg/dL (0.2-1.0); BUN/CREATININE RATIO 8.7 (No establ ref range); C-REACTIVE PROTEIN 22.82 ng/dL (<=0.30); CALCIUM 7.3 mg/dL (8.5-10.1); CREATININE 1.15 mg/dL (0.70-1.30); EST CRCL DRUG DOSING (CG) 81.85 mL/min; MAGNESIUM 1.7 mg/dL (1.8-2.4); POTASSIUM,K 3.8 mmol/L (3.5-5.1); PROTEIN TOTAL,TP 7.3 g/dL (6.4-8.2)
[2023-04-06 06:44] LABS: A/G RATIO 0.35
[2023-04-06] MEDS ORDERED: Magnesium Sulfate/Water 2 GM in Premix Bag 1 BAG IV ONE (08:59)
[2023-04-06] MEDS: Venlafaxine 150 MG Cap.ER PO SCH (09:19)
[2023-04-06] MEDS: Saccharomyces Boulardii (Probiotic) 250 MG Cap PO SCH ×2 (09:19→21:28)
[2023-04-06] MEDS: Allopurinol 100 MG Tab PO SCH (09:21)
[2023-04-06] MEDS: Atenolol 50 MG Tab PO SCH (09:21)
[2023-04-06] MEDS: atorvaSTATin 20 MG Tab PO SCH (09:22)
[2023-04-06] MEDS: Cyclobenzaprine 10 MG Tab PO SCH ×2 (09:22→21:28)
[2023-04-06] MEDS: Lisinopril 20 MG Tab PO SCH ×2 (09:22→21:29)
[2023-04-06] MEDS: Folic Acid 1 MG Tab PO SCH (09:24)
[2023-04-06] MEDS: Multivitamin Tab PO SCH (09:24)
[2023-04-06] MEDS: Thiamine 100 MG Tab PO SCH (09:24)
[2023-04-06] MEDS: Aspirin 81 MG Tab.EC PO SCH (09:24)
[2023-04-06] MEDS: Bacitracin/Neomycin/Polymyxin B Oint 28.4 GM Tube TOP SCH ×2 (09:30→21:27)
[2023-04-06] MEDS: Nicotine 21 MG/24 Hr Patch TRDERM SCH (09:30)
[2023-04-06] MEDS: oxyCODONE 5 MG Tab PO PRN ×2 (12:13→19:32)
[2023-04-06] MEDS: Gabapentin 300 MG Cap PO SCH (21:29)
[2023-04-06] MEDS: Ferrous Sulfate 325 MG Tab PO SCH (21:30)
[2023-04-06] MEDS: Melatonin 3 MG Tab PO SCH (21:30)
[2023-04-06] MEDS: Ascorbic Acid 500 MG Tab PO SCH (21:30)
[2023-04-07] MEDS: Piperacillin/Tazobactam 3.375 GM in Sodium Chloride 0.9% 100 ML IV SCH ×5 (00:05→23:57)
[2023-04-07] MEDS: Omeprazole 20 MG Cap.CR PO SCH ×2 (05:42→15:55)
[2023-04-07 06:24] LABS: BASOPHILS PERCENT AUTO 0.4 % (0.0-1.0); EOSINOPHILS PERCENT AUTO 1.5 % (1.0-3.0); HEMATOCRIT 31.4 % (40.0-54.0); LYMPHOCYTES PERCENT AUTO 11.5 % (20.5-50.1); MEAN CORPUSCULAR HEMOGLOBIN 31.3 pg (27.0-34.0); MEAN CORPUSCULAR HGB CONC 31.8 g/dL (33.0-35.0); MEAN CORPUSCULAR VOLUME 98.1 fL (80-100); MONOCYTES PERCENT AUTO 14.4 % (2-8); NEUTROPHILS PERCENT AUTO 72.2 % (42.2-75.2); PLATELET COUNT,PLT 156 10^3/uL (150-450); WHITE BLOOD CELL COUNT,WBC 13.3 10^3/uL (5.0-10.0)
[2023-04-07 06:56] LABS: ALBUMIN 1.8 g/dL (3.4-5.0); ANION GAP 13.8 mEq/L (7-13); BILIRUBIN TOTAL 1.3 mg/dL (0.2-1.0); BUN/CREATININE RATIO 7.6 (No establ ref range); C-REACTIVE PROTEIN 16.94 ng/dL (<=0.30); CALCIUM 7.7 mg/dL (8.5-10.1); CREATININE 1.05 mg/dL (0.70-1.30); EST CRCL DRUG DOSING (CG) 89.64 mL/min; MAGNESIUM 1.8 mg/dL (1.8-2.4); POTASSIUM,K 3.8 mmol/L (3.5-5.1); PROTEIN TOTAL,TP 7.4 g/dL (6.4-8.2)
[2023-04-07 06:58] LABS: A/G RATIO 0.32
[2023-04-07] MEDS: Atenolol 50 MG Tab PO SCH (09:43)
[2023-04-07] MEDS: Venlafaxine 150 MG Cap.ER PO SCH (09:43)
[2023-04-07] MEDS: atorvaSTATin 20 MG Tab PO SCH (09:43)
[2023-04-07] MEDS: Multivitamin Tab PO SCH (09:44)
[2023-04-07] MEDS: Cyclobenzaprine 10 MG Tab PO SCH ×2 (09:44→21:11)
[2023-04-07] MEDS: Saccharomyces Boulardii (Probiotic) 250 MG Cap PO SCH ×2 (09:44→21:10)
[2023-04-07] MEDS: Lisinopril 20 MG Tab PO SCH ×2 (09:46→21:11)
[2023-04-07] MEDS: Allopurinol 100 MG Tab PO SCH (09:47)
[2023-04-07] MEDS: Aspirin 81 MG Tab.EC PO SCH (09:48)
[2023-04-07] MEDS: Thiamine 100 MG Tab PO SCH (09:48)
[2023-04-07] MEDS: Nicotine 21 MG/24 Hr Patch TRDERM SCH (09:49)
[2023-04-07] MEDS: Bacitracin/Neomycin/Polymyxin B Oint 28.4 GM Tube TOP SCH ×2 (09:58→21:16)
[2023-04-07] MEDS ORDERED: Furosemide 20 MG/2 ML VIAL IVPUSH ONE (10:04)
[2023-04-07] MEDS: oxyCODONE 5 MG Tab PO PRN (12:08)
[2023-04-07] MEDS: Acetaminophen 325 MG Tab PO PRN (18:22)
[2023-04-07] MEDS: Ferrous Sulfate 325 MG Tab PO SCH (21:12)
[2023-04-07] MEDS: Ascorbic Acid 500 MG Tab PO SCH (21:12)
[2023-04-07] MEDS: Doxycycline Monohydrate 100 MG Cap PO SCH (21:13)
[2023-04-07] MEDS: Melatonin 3 MG Tab PO SCH (21:13)
[2023-04-07] MEDS: Gabapentin 300 MG Cap PO SCH (21:13)
[2023-04-08] MEDS: Piperacillin/Tazobactam 3.375 GM in Sodium Chloride 0.9% 100 ML IV SCH (05:45)
[2023-04-08] MEDS: Omeprazole 20 MG Cap.CR PO SCH (05:47)
[2023-04-08 07:03] LABS: HEMATOCRIT 33.2 % (40.0-54.0); HEMOGLOBIN 10.8 g/dL (14.0-18.0); MEAN CORPUSCULAR HEMOGLOBIN 31.7 pg (27.0-34.0); MEAN CORPUSCULAR HGB CONC 32.5 g/dL (33.0-35.0); MEAN CORPUSCULAR VOLUME 97.4 fL (80-100); PLATELET COUNT,PLT 193 10^3/uL (150-450); RED BLOOD CELL COUNT 3.41 10^6/uL (4.6-6.2); WHITE BLOOD CELL COUNT,WBC 12.9 10^3/uL (5.0-10.0)
[2023-04-08 07:06] LABS: BASOPHILS PERCENT AUTO 0.5 % (0.0-1.0); EOSINOPHILS PERCENT AUTO 1.8 % (1.0-3.0); LYMPHOCYTES PERCENT AUTO 13.2 % (20.5-50.1); MONOCYTES PERCENT AUTO 11.9 % (2-8); NEUTROPHILS PERCENT AUTO 72.6 % (42.2-75.2)
[2023-04-08 07:48] LABS: ALBUMIN 1.9 g/dL (3.4-5.0); ANION GAP 12.6 mEq/L (7-13); BILIRUBIN TOTAL 1.2 mg/dL (0.2-1.0); BUN/CREATININE RATIO 6.5 (No establ ref range); C-REACTIVE PROTEIN 13.48 ng/dL (<=0.30); CALCIUM 8.2 mg/dL (8.5-10.1); CREATININE 1.07 mg/dL (0.70-1.30); EST CRCL DRUG DOSING (CG) 87.97 mL/min; MAGNESIUM 1.5 mg/dL (1.8-2.4); POTASSIUM,K 3.6 mmol/L (3.5-5.1); PROTEIN TOTAL,TP 7.9 g/dL (6.4-8.2)
[2023-04-08 07:51] LABS: A/G RATIO 0.32
[2023-04-08 08:10] LABS: BAND PERCENT MAN 1 %; EOSINOPHILS PERCENT MAN 2 % (1-3); LYMPHOCYTES PERCENT MAN 14 % (20-50); MONOCYTES PERCENT MAN 9 % (2-8); SEG NEUTROPHILS PERCENT MAN 74 % (42-75)
[2023-04-08] MEDS: Saccharomyces Boulardii (Probiotic) 250 MG Cap PO SCH (09:54)
[2023-04-08] MEDS: Doxycycline Monohydrate 100 MG Cap PO SCH (09:54)
[2023-04-08] MEDS: Atenolol 50 MG Tab PO SCH (09:54)
[2023-04-08] MEDS: Venlafaxine 150 MG Cap.ER PO SCH (09:55)
[2023-04-08] MEDS: atorvaSTATin 20 MG Tab PO SCH (09:55)
[2023-04-08] MEDS: Thiamine 100 MG Tab PO SCH (09:55)
[2023-04-08] MEDS: Multivitamin Tab PO SCH (09:55)
[2023-04-08] MEDS: Cyclobenzaprine 10 MG Tab PO SCH (09:56)
[2023-04-08] MEDS: Aspirin 81 MG Tab.EC PO SCH (09:57)
[2023-04-08] MEDS: Allopurinol 100 MG Tab PO SCH (09:58)
[2023-04-08] MEDS: Lisinopril 20 MG Tab PO SCH (09:58)
[2023-04-08] MEDS: Bacitracin/Neomycin/Polymyxin B Oint 28.4 GM Tube TOP SCH (10:02)
[2023-04-08] MEDS: Nicotine 21 MG/24 Hr Patch TRDERM SCH (10:03)
[2023-04-08 13:33] VITALS: BP 144/73; PULSE 80
== END 2023-04-08 12:05 | disposition home or self-care (01) | DRG 872 ==
LOC: DL.ED 14:48 → UNDOADMIN 18:47 → DL.MS 18:47
PROVIDERS: ADMIT Internal Medicine; ATTEND Internal Medicine
DX: A40.0 Sepsis due to streptococcus, group A (principal); E87.1 Hypo-osmolality and hyponatremia; L03.114 Cellulitis of left upper limb; I10 Essential (primary) hypertension; F41.9 Anxiety disorder, unspecified; F32.A Depression, unspecified; M10.9 Gout, unspecified; K21.9 Gastro-esophageal reflux disease without esophagitis; G62.9 Polyneuropathy, unspecified; W50.3XXA Accidental bite by another person, initial encounter; F17.210 Nicotine dependence, cigarettes, uncomplicated; G47.00 Insomnia, unspecified; E66.9 Obesity, unspecified; E78.00 Pure hypercholesterolemia, unspecified; E87.8 Other disorders of electrolyte and fluid balance, not elsewhere classified; D69.6 Thrombocytopenia, unspecified; R73.9 Hyperglycemia, unspecified; D50.9 Iron deficiency anemia, unspecified; E83.42 Hypomagnesemia; E83.51 Hypocalcemia; M79.18 Myalgia, other site; F10.129 Alcohol abuse with intoxication, unspecified; Z79.82 Long term (current) use of aspirin; Z79.899 Other long term (current) drug therapy; Z90.49 Acquired absence of other specified parts of digestive tract; Z98.890 Other specified postprocedural states; Z68.33 Body mass index [BMI] 33.0-33.9, adult
CPT/HCPCS: 36415; 62270; 70450; 71046; 80053; 80061; 80202; 80305-QW; 80307; 81001; 82945; 83605; 83735; 84145; 84157; 84484; 85025; 85379; 85384; 85610; 85730; 86140; 87040; 87070; 87077; 87186; 87205; 89050; 90471; 90715; 93005; 94762; 96361; 96365; 96375; 99232; 99233; 99284; 99285-25; 99291; 99292; A9270-GY; J0290; J0612; J0696; J1170; J1885; J1940; J2060; J2405; J2543; J3010; J3370; J3411; J3475; J3480; J3490; J7030; J7040; J7050; J7120

== ENCOUNTER 2025-01-11 13:03 | Inpatient (IN) | payer BC, MEDICAID, OTHER ==
[~2025-01-11 13:03] MED LIST: Sodium Chloride 0.9% 10 ML Syringe FLUSH PRN
[2025-01-11] MEDS: Ondansetron 4 MG/2 ML SDV IVPUSH ONE (13:13)
[2025-01-11] MEDS: Ondansetron 4 MG/2 ML SDV ONE (13:14)
[2025-01-11 13:15] LABS: BASOPHILS PERCENT AUTO 0.2 % (0.0-1.0); EOSINOPHILS PERCENT AUTO 0.4 % (1.0-3.0); LYMPHOCYTES PERCENT AUTO 12.0 % (20.5-50.1); MONOCYTES PERCENT AUTO 0.4 % (2-8); NEUTROPHILS PERCENT AUTO 87.0 % (42.2-75.2); PLATELET COUNT,PLT 158 10^3/uL (150-450); RED BLOOD CELL COUNT 3.32 10^6/uL (4.6-6.2); WHITE BLOOD CELL COUNT,WBC 4.7 10^3/uL (5.0-10.0)
[2025-01-11 14:05] LABS: ALANINE AMINOTRANSFERASE,ALT 40.0 U/L (16-63); ASPARTATE AMNIOTRANSFERASE,AST 51.0 U/L (15-37); BILIRUBIN TOTAL 1.1 mg/dL (0.2-1.0); BLOOD UREA NITROGEN,BUN 17.0 mg/dL (7-18); CARBON DIOXIDE,CO2 22.0 mmol/L (21-32); CHLORIDE,CL 102.0 mmol/L (98-107); CREATININE 1.53 mg/dL (0.70-1.30); EST CRCL DRUG DOSING (CG) 56.48 mL/min; GLUCOSE RANDOM 99.0 mg/dL (70-99); POTASSIUM,K 4.5 mmol/L (3.5-5.1); PROTEIN TOTAL,TP 8.3 g/dL (6.4-8.2); SODIUM,NA 135.0 mmol/L (136-145)
[2025-01-11 14:06] LABS: A/G RATIO 0.63; ESTIMATED GFR 54.0 mL/min (>=60)
[2025-01-11 14:13] LABS: LACTIC ACID 2.4 mmol/L (0.4-2.0)
[2025-01-11 15:46] LABS: APPEARANCE,URINE CLEAR (CLEAR); GLUCOSE,URINE NEGATIVE (NEGATIVE); OCCULT BLOOD,URINE LARGE (NEGATIVE)
[2025-01-11 15:52] LABS: EPITHELIAL CELLS,URINE RARE /HPF (NOT SEEN)
[2025-01-11] MEDS ORDERED: 50% Dextrose in Water 50 ML Syringe IVPUSH PRN (17:39)
[2025-01-11 18:08] LABS: IRON,FE 38.0 ug/dL (65-175); PERCENT FE SATURATION 12.9 % (20.0-50.0)
[2025-01-11 18:08] LABS: AMPHETAMINES,URINE NEGATIVE (NEGATIVE); BARBITURATES,URINE NEGATIVE (NEGATIVE); MDMA (ECSTASY), URINE NEGATIVE (NEGATIVE); METHAMPHETAMINES,URINE NEGATIVE (NEGATIVE); OPIATES,URINE NEGATIVE (NEGATIVE); OXYCODONE,URINE NEGATIVE (NEGATIVE); PHENCYCLIDINE,URINE NEGATIVE (NEGATIVE); TCA,URINE POSITIVE (NEGATIVE)
[2025-01-11] MEDS: Thiamine 200 MG/2 ML MDV IVPUSH ONE (18:09)
[2025-01-11 18:35] LABS: CHOLESTEROL HDL 43 mg/dL (40-59); CHOLESTEROL TOTAL 131 mg/dL (0-199); CREATINE KINASE,CK 198 U/L (39-308); FOLIC ACID 11.5 ng/mL (8.6-58.9); GAMMA GLUTAMYL TRANSFERASE,GGT 691 U/L (15-85); LACTATE DEHYDROGENASE,LDH 189 U/L (85-227)
[2025-01-11 18:37] LABS: ETHANOL BLOOD MEDICAL < 3 mg/dL (0)
[2025-01-11] MEDS: Lactated Ringers 1,000 ML IV SCH (19:44)
[2025-01-11 20:44] LABS: LACTIC ACID 1.5 mmol/L (0.4-2.0)
[2025-01-11] MEDS: Heparin Sodium 5,000 Units/ML Vial SUBCUT SCH (22:10)
[2025-01-12] MEDS: methylPREDNISolone Sodium Succinate 40 MG/1 ML SDV IVPUSH STA (00:37)
[2025-01-12 06:18] LABS: BASOPHILS PERCENT AUTO 0.1 % (0.0-1.0); EOSINOPHILS PERCENT AUTO 0.0 % (1.0-3.0); LYMPHOCYTES PERCENT AUTO 2.6 % (20.5-50.1); MONOCYTES PERCENT AUTO 1.5 % (2-8); NEUTROPHILS PERCENT AUTO 95.8 % (42.2-75.2); PLATELET COUNT,PLT 86 10^3/uL (150-450); RED BLOOD CELL COUNT 2.90 10^6/uL (4.6-6.2); WHITE BLOOD CELL COUNT,WBC 10.5 10^3/uL (5.0-10.0)
[2025-01-12 06:40] LABS: INR 1.2 (0.9-1.2)
[2025-01-12 06:47] LABS: A/G RATIO 0.55; ALANINE AMINOTRANSFERASE,ALT 34.0 U/L (16-63); ASPARTATE AMNIOTRANSFERASE,AST 44.0 U/L (15-37); BILIRUBIN DIRECT 0.6 mg/dL (0.0-0.2); BILIRUBIN INDIRECT 0.4; BILIRUBIN TOTAL 1.0 mg/dL (0.2-1.0); BLOOD UREA NITROGEN,BUN 19.0 mg/dL (7-18); CARBON DIOXIDE,CO2 21.0 mmol/L (21-32); CHLORIDE,CL 104.0 mmol/L (98-107); CREATININE 1.81 mg/dL (0.70-1.30); EST CRCL DRUG DOSING (CG) 49.29 mL/min; ESTIMATED GFR 44.0 mL/min (>=60); GLUCOSE RANDOM 116.0 mg/dL (70-99); PHOSPHORUS 2.7 mg/dL (2.6-4.7); POTASSIUM,K 4.7 mmol/L (3.5-5.1); PROTEIN TOTAL,TP 7.6 g/dL (6.4-8.2); SODIUM,NA 136.0 mmol/L (136-145)
[2025-01-12] MEDS: Magnesium Sulfate 4 GM/100 mL 4 GM in Premix Bag 1 BAG IV ONE (07:34)
[2025-01-12 11:37] VITALS: BP 111/47; PULSE 65
== END 2025-01-12 12:29 | DRG 871 ==
LOC: DL.ED 13:03 → DL.MS 16:05 → DL.ED 16:19
PROVIDERS: ADMIT Internal Medicine; ATTEND Internal Medicine
DX: A41.89 Other specified sepsis (principal); I33.0 Acute and subacute infective endocarditis; M31.19 Other thrombotic microangiopathy; E87.20 Acidosis, unspecified; N17.9 Acute kidney failure, unspecified; D75.829 Heparin-induced thrombocytopenia, unspecified; L03.116 Cellulitis of left lower limb; M86.8X7 Other osteomyelitis, ankle and foot; N18.9 Chronic kidney disease, unspecified; E78.00 Pure hypercholesterolemia, unspecified; M10.9 Gout, unspecified; L97.529 Non-pressure chronic ulcer of other part of left foot with unspecified severity; I12.9 Hypertensive chronic kidney disease with stage 1 through stage 4 chronic kidney disease, or unspecified chronic kidney disease; R65.20 Severe sepsis without septic shock; E11.40 Type 2 diabetes mellitus with diabetic neuropathy, unspecified; E11.22 Type 2 diabetes mellitus with diabetic chronic kidney disease; D64.9 Anemia, unspecified; E80.6 Other disorders of bilirubin metabolism; E78.5 Hyperlipidemia, unspecified; F10.10 Alcohol abuse, uncomplicated; Z79.899 Other long term (current) drug therapy; Z79.82 Long term (current) use of aspirin; Z86.16 Personal history of COVID-19; Z90.49 Acquired absence of other specified parts of digestive tract
CPT/HCPCS: 36415; 71045; 73630-LT; 80048; 80053; 80061; 80076; 80202; 80305-QW; 80307; 81001; 82550; 82607; 82746; 82947; 82977; 83036; 83540; 83550; 83605; 83615; 83735; 84100; 84145; 84425; 84484; 85025; 85379; 85384; 85610; 85651; 86022; 86140; 87040; 87070; 87077; 87186; 87205; 93005; 99223; 99239; A9270-GY; J1644; J2405; J2543; J2919; J3373; J3411; J3475; J7030; J7040; J7120

== ENCOUNTER 2025-02-21 17:05 | Emergency (ER) | payer MEDICAID ==
[2025-02-21] MEDS ORDERED: Sodium Chloride 0.9% 10 ML Syringe FLUSH PRN (17:21)
[2025-02-21 17:30] LABS: BASOPHILS PERCENT AUTO 0.4 % (0.0-1.0); EOSINOPHILS PERCENT AUTO 2.7 % (1.0-3.0); LYMPHOCYTES PERCENT AUTO 18.5 % (20.5-50.1); MONOCYTES PERCENT AUTO 7.0 % (2-8); NEUTROPHILS PERCENT AUTO 71.4 % (42.2-75.2); PLATELET COUNT,PLT 341 10^3/uL (150-450); RED BLOOD CELL COUNT 2.28 10^6/uL (4.6-6.2); WHITE BLOOD CELL COUNT,WBC 7.8 10^3/uL (5.0-10.0)
[2025-02-21 17:56] LABS: INR 1.1 (0.9-1.2); PTT,PARTIAL THROMBOPLSTIN TIME 28.5 SEC (22.0-34.0)
[2025-02-21 17:58] LABS: LACTIC ACID 1.4 mmol/L (0.4-2.0)
[2025-02-21 18:00] LABS: A/G RATIO 0.46; ALANINE AMINOTRANSFERASE,ALT 61 U/L (16-63); ASPARTATE AMNIOTRANSFERASE,AST 91 U/L (15-37); BILIRUBIN TOTAL 0.6 mg/dL (0.2-1.0); BLOOD UREA NITROGEN,BUN 52 mg/dL (7-18); CARBON DIOXIDE,CO2 22 mmol/L (21-32); CHLORIDE,CL 106 mmol/L (98-107); CREATININE 4.13 mg/dL (0.70-1.30); ESTIMATED GFR 17 mL/min (>=60); GLUCOSE RANDOM 101 mg/dL (70-99); POTASSIUM,K 5.4 mmol/L (3.5-5.1); PROTEIN TOTAL,TP 9.2 g/dL (6.4-8.2); SODIUM,NA 139 mmol/L (136-145)
[2025-02-21 22:25] VITALS: BP 148/91; PULSE 76
== END 2025-02-21 22:58 | disposition home or self-care (01) ==
LOC: DL.ED 17:05
DX: I12.9 Hypertensive chronic kidney disease with stage 1 through stage 4 chronic kidney disease, or unspecified chronic kidney disease (principal); N18.4 Chronic kidney disease, stage 4 (severe); D63.1 Anemia in chronic kidney disease; E83.42 Hypomagnesemia; E87.5 Hyperkalemia; E78.00 Pure hypercholesterolemia, unspecified; Z79.82 Long term (current) use of aspirin; Z79.899 Other long term (current) drug therapy; Z86.16 Personal history of COVID-19
CPT/HCPCS: 36415; 36430; 80053; 83605; 83690; 83735; 84484; 85014; 85018; 85025; 85610; 85730; 86140; 86850; 86900; 86901; 86920; 86922; 93010; 99284; P9016